=== PATIENT | female | born 1980 | race American Indian/Alaskan Native ===

== ENCOUNTER 2020-05-14 10:58 | Emergency (ER) | payer SELFPAY ==
[2020-05-14 11:18] VITALS: BP 143/85
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
== END 2020-05-14 13:30 | disposition home or self-care (01) ==
LOC: ED 10:58
DX: S29.012A Strain of muscle and tendon of back wall of thorax, initial encounter (principal); S39.012A Strain of muscle, fascia and tendon of lower back, initial encounter; Z79.899 Other long term (current) drug therapy; V49.49XA Driver injured in collision with other motor vehicles in traffic accident, initial encounter; Y93.89 Activity, other specified; Y92.488 Other paved roadways as the place of occurrence of the external cause; Y99.8 Other external cause status
CPT/HCPCS: 72040; 72100; 99283

== ENCOUNTER 2020-05-18 20:10 | Emergency (ER) | payer OTHER ==
--- NOTE | 2020-05-18 22:58 | Emergency Department Report ---
- General Chief complaint: Animal Bite Stated complaint: SWOLLEN RT FOOT Time Seen by Provider: 05/18/20 22:51 Source: patient Mode of arrival: Ambulatory Limitations: No Limitations - History of Present Illness Initial comments: CC: something may have bit me HPI: This is a 39 yo female with hx of HTN who presents with right wrist hand swelling. She saw two pustules at the distal right wrist. She deroofed them. She now has redness, tenderness of distal forearm and hand. No hx of DM. She does not take antihypertensive medications. She is unable to afford medication without insurance. Location: RUE, R hand Severity: mild Quality: aching Consistency: constant Improves with: none Worsens with: none Context: other (possible insect bite, no pets at home) Associated symptoms: denies other symptoms Treatments Prior to Arrival: none - Related Data Previous Rx's Medication Instructions Recorded Last Taken Type Ibuprofen [Motrin] 800 mg PO Q8HR PRN #30 tablet 05/14/20 Unknown Rx Lidocaine [Lidoderm] 1 each TP Q12HR #10 adh..patch 05/14/20 Unknown Rx methOCARBAMOL [Robaxin TAB] 750 mg PO Q8H PRN #30 tablet 05/14/20 Unknown Rx Sulfamethoxazole/Trimethoprim 1 each PO BID 10 Days #20 tablet 05/18/20 Unknown Rx [Bactrim DS TAB] amLODIPine 10 mg PO DAILY 90 Days #90 tab 05/18/20 Unknown Rx cephALEXin [Keflex] 500 mg PO Q6HR 10 Days #40 capsule 05/18/20 Unknown Rx Allergies Allergy/AdvReac Type Severity Reaction Status Date / Time No Known Allergies Allergy Unverified 05/18/20 22:38 Abscess Boil HPI - HPI Chief Complaint: Animal Bite Stated Complaint: SWOLLEN RT FOOT Time Seen by Provider: 05/18/20 22:51 Home Medications: Previous Rx's Medication Instructions Recorded Last Taken Type Ibuprofen [Motrin] 800 mg PO Q8HR PRN #30 tablet 05/14/20 Unknown Rx Lidocaine [Lidoderm] 1 each TP Q12HR #10 adh..patch 05/14/20 Unknown Rx methOCARBAMOL [Robaxin TAB] 750 mg PO Q8H PRN #30 tablet 05/14/20 Unknown Rx Sulfamethoxazole/Trimethoprim 1 each PO BID 10 Days #20 tablet 05/18/20 Unknown Rx [Bactrim DS TAB] amLODIPine 10 mg PO DAILY 90 Days #90 tab 05/18/20 Unknown Rx cephALEXin [Keflex] 500 mg PO Q6HR 10 Days #40 capsule 05/18/20 Unknown Rx Allergies/Adverse Reactions: Allergies Allergy/AdvReac Type Severity Reaction Status Date / Time No Known Allergies Allergy Unverified 05/18/20 22:38 ED Review of Systems ROS: Stated complaint: SWOLLEN RT FOOT Other details as noted in HPI Constitutional: denies: chills, fever, malaise Musculoskeletal: denies: joint swelling, arthralgia, myalgia Skin: rash, lesions ED Past Medical Hx - Past Medical History Previous Medical History?: No - Surgical History Past Surgical History?: Yes Additional Surgical History: - Medications Home Medications: Home Medications Medication Instructions Recorded Confirmed Last Taken Type Ibuprofen [Motrin] 800 mg PO Q8HR PRN #30 tablet 05/14/20 Unknown Rx Lidocaine [Lidoderm] 1 each TP Q12HR #10 adh..patch 05/14/20 Unknown Rx methOCARBAMOL [Robaxin TAB] 750 mg PO Q8H PRN #30 tablet 05/14/20 Unknown Rx Sulfamethoxazole/Trimethoprim 1 each PO BID 10 Days #20 tablet 05/18/20 Unknown Rx [Bactrim DS TAB] amLODIPine 10 mg PO DAILY 90 Days #90 tab 05/18/20 Unknown Rx cephALEXin [Keflex] 500 mg PO Q6HR 10 Days #40 capsule 05/18/20 Unknown Rx ED Physical Exam - General Limitations: No Limitations General appearance: alert, in no apparent distress - Head Head exam: Present: atraumatic, normocephalic - Eye Eye exam: Present: normal appearance. Absent: scleral icterus, conjunctival injection - Neck Neck exam: Present: full ROM - Respiratory Respiratory exam: Absent: respiratory distress - Neurological Exam Neurological exam: Present: alert, oriented X3 - Skin Skin exam: Present: other (two puncture wounds with purulent drainage right dorsal distal forearm with redness/edema extending to hand) ED Course Vital Signs 05/18/20 22:43 Temperature 98.3 F Pulse Rate 87 Respiratory 17 Rate Blood Pressure 174/104 O2 Sat by Pulse 99 Oximetry ED Medical Decision Making - Medical Decision Making cellulitis of hand/distal bailon: bactrim/ keflex htn urgency: 90 day amlodipine prescription Critical care attestation.: If time is entered above; I have spent that time in minutes in the direct care of this critically ill patient, excluding procedure time. ED Disposition Clinical Impression: Cellulitis of right upper extremity, Hypertension Disposition: TO HOME OR SELFCARE Is pt being admited?: No Does the pt Need Aspirin: No Condition: Stable Instructions: Hypertension (ED), Cellulitis, Adult, [id number] Prescriptions: amLODIPine 10 mg PO DAILY 90 Days #90 tab Sulfamethoxazole/Trimethoprim [Bactrim DS TAB] 1 each PO BID 10 Days #20 tablet cephALEXin [Keflex] 500 mg PO Q6HR 10 Days #40 capsule Referrals: QUINTEN GONZÁLES MD [Staff Physician] - 3-5 Days Forms: Work/School Release Form(ED)
[2020-05-19 04:01] VITALS: BP 152/89
== END 2020-05-18 23:25 | disposition home or self-care (01) ==
LOC: ED 20:10
DX: L03.113 Cellulitis of right upper limb (principal); I10 Essential (primary) hypertension; Z98.890 Other specified postprocedural states; Z79.1 Long term (current) use of non-steroidal anti-inflammatories (NSAID); Z79.899 Other long term (current) drug therapy
CPT/HCPCS: 99282